=== PATIENT | female | born 1940 | race Caucasian/White ===

== ENCOUNTER 2017-07-26 08:43 | Day surgery (SDC) | payer MEDICARE, BC ==
[2017-07-26] MEDS ORDERED: fentaNYL* 50 MCG/ML 2 ML VIAL (100 MCG VIAL) ONE (09:21)
[2017-07-26] MEDS ORDERED: Midazolam* 1 MG/ML 2 ML VIAL (2 MG) ONE (09:22)
[2017-07-26] MEDS ORDERED: Buffered Lidocaine 0.9% SYRIN* 5 ML/SYR SYRINGE INTRADERM ONE (09:34)
[2017-07-26 10:22] VITALS: BP 98/55
[2017-07-26] MEDS ORDERED: Tropicamide 1% OPTH.SOL* BTL ONE (12:02)
[2017-07-26] MEDS ORDERED: Ketorolac 0.5% OPHTH (NF) 0.5 % 5 ML BTL ONE (12:02)
[2017-07-26] MEDS ORDERED: Phenylephr/Ketorolac 1%/0.3% OPH DROP BTL ONE (12:02)
[2017-07-26] MEDS ORDERED: Cyclopentolate 1% OPTH.SOL* 2 ML BTL ONE (12:02)
[2017-07-26] MEDS ORDERED: Lidocaine 1%* 5 ML VIAL ONE (12:02)
[2017-07-26] MEDS ORDERED: Phenylephrine 2.5% OPTH.SOL* 2 ML BTL ONE (12:02)
[2017-07-26] MEDS ORDERED: Neomycin/Polymy/Dex OPHTH.OIN* 3.5 GM ONE (12:02)
[2017-07-26] MEDS ORDERED: Tetracaine 0.5% OPTH.SOL 4 ML* 1 DROP BTL ONE (12:02)
--- NOTE | 2017-07-27 03:34 | OP ---
DATE OF OPERATION: 07/26/17 [facility] DATE OF : 40 SURGEON: Dr. Sawyer Sutton. APPLICATIONS PROCESSOR: None. ANESTHESIA: Topical with intravenous sedation. PRE-OP DIAGNOSIS: Cataract, left eye. POST-OP DIAGNOSIS: Cataract, left eye. OPERATIVE PROCEDURE: Phacoemulsification and cataract extraction with posterior chamber intraocular lens implant, left eye. COMPLICATIONS: None. BLOOD LOSS: None. DESCRIPTION OF PROCEDURE: The patient was brought to the operating room and received a small amount of intravenous sedation. A drop of Tetracaine was placed in her left eye. She was prepped and draped in the usual sterile fashion for ophthalmic surgery and attention was directed to the left eye where a speculum was placed. A paracentesis was created at the 5 o'clock position and 0.1 cc of 1 percent preservative-free Lidocaine was injected into the anterior chamber followed by DisCoVisc. The eye was digitally stabilized while a 2.75 mm keratome was used to create a triplanar clear corneal incision at the 3 o'clock position. A continuous curvilinear capsulorrhexis was created with a cystotome and Utrata forceps. BSS on a cannula was used to hydrodissect the lens from the capsule. Phacoemulsification was performed in a divide-and- conquer technique to create four fragments which were removed. Residual cortical material was removed with irrigation and aspiration. DisCoVisc was used to inflate the capsular bag and an AUOOTO 17.5 diopter lens was folded and inserted into the capsular bag. DisCoVisc was removed using irrigation and aspiration. BSS on a cannula was used to hydrate the corneal stroma and seal the wound. At the end of the case the pupil was round and the lens was centered. The eye was of normal pressure and the wound was water tight. The speculum was removed and topical Maxitrol ointment was placed on the surface of the eye. The eye was closed, patched and shielded and the patient was sent to the recovery room in stable condition with post operative instructions and follow-up appointment given. [id number]/[facility] #: [id number]
[2017-07-27] MEDS ORDERED: Acetaminophen TAB* 325 MG PO PRN (05:00)
== END 2017-07-26 10:29 | disposition home or self-care (01) ==
LOC: OREAST 08:43
PROVIDERS: ATTEND Ophthalmology
DX: H25.12 Age-related nuclear cataract, left eye (principal); C83.50 Lymphoblastic (diffuse) lymphoma, unspecified site; Z87.891 Personal history of nicotine dependence; J45.909 Unspecified asthma, uncomplicated
CPT/HCPCS: A9270-GY; C9447; J2250; J3010; V2632

== ENCOUNTER 2017-08-02 08:14 | Day surgery (SDC) | payer MEDICARE, BC, OTHER ==
[~2017-08-02 08:14] MED LIST: Acetaminophen TAB* 325 MG PO PRN; Buffered Lidocaine 0.9% SYRIN* 5 ML/SYR SYRINGE INTRADERM ONE
[2017-08-02] MEDS ORDERED: fentaNYL* 50 MCG/ML 2 ML VIAL (100 MCG VIAL) ONE (09:29)
[2017-08-02] MEDS ORDERED: Midazolam* 1 MG/ML 2 ML VIAL (2 MG) ONE ×2 (09:30→09:46)
[2017-08-02 10:37] VITALS: BP 102/57
[2017-08-02] MEDS ORDERED: Tetracaine 0.5% OPTH.SOL 4 ML* 1 DROP BTL ONE (11:29)
[2017-08-02] MEDS ORDERED: Tropicamide 1% OPTH.SOL* BTL ONE (11:29)
[2017-08-02] MEDS ORDERED: Phenylephrine 2.5% OPTH.SOL* 2 ML BTL ONE (11:29)
[2017-08-02] MEDS ORDERED: Phenylephr/Ketorolac 1%/0.3% OPH DROP BTL ONE (11:29)
[2017-08-02] MEDS ORDERED: Cyclopentolate 1% OPTH.SOL* 2 ML BTL ONE (11:29)
[2017-08-02] MEDS ORDERED: Lidocaine 1%* 5 ML VIAL ONE (11:29)
[2017-08-02] MEDS ORDERED: Neomycin/Polymy/Dex OPHTH.OIN* 3.5 GM ONE (11:29)
[2017-08-02] MEDS ORDERED: Ketorolac 0.5% OPHTH (NF) 0.5 % 5 ML BTL ONE (11:30)
--- NOTE | 2017-08-03 07:50 | OP ---
DATE OF OPERATION: 08/02/17 [facility] DATE OF : 40 SURGEON: Dr. Saweyr Sutton. PRELOAD SUPERVISOR: None. ANESTHESIA: Topical with intravenous sedation. PRE-OP DIAGNOSIS: Cataract, right eye. POST-OP DIAGNOSIS: Cataract, right eye. OPERATIVE PROCEDURE: Phacoemulsification and cataract extraction with posterior chamber intraocular lens implant, right eye. COMPLICATIONS: None. BLOOD LOSS: None. DESCRIPTION OF PROCEDURE: The patient was brought to the operating room and received a small amount of intravenous sedation. A drop of Tetracaine was placed in her right eye. The patient was prepped and draped in the usual sterile fashion for ophthalmic surgery and attention was directed to the right eye where a speculum was placed. A paracentesis was created at the 11 o'clock position and 0.1 cc of 1 percent preservative-free Lidocaine was injected into the anterior chamber followed by DisCoVisc. The eye was digitally stabilized while a 2.75 mm keratome was used to create a triplanar clear corneal incision at the 9 o'clock position. A continuous curvilinear capsulorrhexis was created with a cystotome and Utrata forceps. BSS on a cannula was used to hydrodissect the lens from the capsule. Phacoemulsification was performed in a divide-and- conquer technique to create four fragments which were removed. Residual cortical material was removed with irrigation and aspiration. DisCoVisc was used to inflate the capsular bag and an AUOOTO 17.5 diopter lens was folded and inserted into the capsular bag. DisCoVisc was removed using irrigation and aspiration. BSS on a cannula was used to hydrate the corneal stroma and seal the wound. At the end of the case the pupil was round and the lens was centered. The eye was of normal pressure and the wound was water tight. The speculum was removed and topical Maxitrol ointment was placed on the surface of the eye. The eye was closed, patched and shielded and the patient was sent to the recovery room in stable condition with post operative instructions and follow-up appointment given. [id number]/[facility] #: [id number] ASUNCION
== END 2017-08-02 10:35 | disposition home or self-care (01) ==
LOC: OREAST 08:14
PROVIDERS: ATTEND Ophthalmology
DX: H25.21 Age-related cataract, morgagnian type, right eye (principal); J45.909 Unspecified asthma, uncomplicated; Z85.42 Personal history of malignant neoplasm of other parts of uterus; Z85.72 Personal history of non-Hodgkin lymphomas; G62.9 Polyneuropathy, unspecified
CPT/HCPCS: A9270-GY; C9447; J2250; J3010; V2632

== ENCOUNTER 2017-09-06 11:08 | Day surgery (SDC) | payer MEDICARE, BC ==
[2017-09-06] MEDS ORDERED: Buffered Lidocaine 0.9% SYRIN* 5 ML/SYR SYRINGE INTRADERM ONE (11:47)
[2017-09-06] MEDS ORDERED: Tropicamide 1% OPTH.SOL* BTL ONE (11:55)
[2017-09-06] MEDS ORDERED: Cyclopentolate 1% OPTH.SOL* 2 ML BTL ONE (11:55)
[2017-09-06] MEDS ORDERED: Ketorolac 0.5% OPHTH (NF) 0.5 % 5 ML BTL ONE (11:55)
[2017-09-06] MEDS ORDERED: Phenylephrine 2.5% OPTH.SOL* 2 ML BTL ONE (11:55)
[2017-09-06] MEDS ORDERED: Tetracaine 0.5% OPTH.SOL 4 ML* 1 DROP BTL ONE (11:55)
[2017-09-06] MEDS ORDERED: Lidocaine 1%* 5 ML VIAL ONE (11:55)
[2017-09-06] MEDS ORDERED: Neomycin/Polymy/Dex OPHTH.OIN* 3.5 GM ONE (11:55)
[2017-09-06] MEDS ORDERED: Midazolam* 1 MG/ML 2 ML VIAL (2 MG) ONE (12:08)
[2017-09-06] MEDS ORDERED: fentaNYL* 50 MCG/ML 2 ML VIAL (100 MCG VIAL) ONE (12:09)
[2017-09-06] MEDS ORDERED: Propofol* 10 MG/ML 20 ML BTL IV PUSH ONE (12:20)
[2017-09-06 12:30] VITALS: BP 92/55
--- NOTE | 2017-09-06 13:19 | OP ---
OPERATIVE REPORT: DATE OF OPERATION: 09/06/17 DATE OF : 40 SURGEON: Sawyer Sutton MD CABLE INSTALLER REPAIRER HELPER: None. ANESTHESIA: Topical with intravenous sedation. PRE-OP DIAGNOSIS: Retained lens material, anterior chamber, right eye. POST-OP DIAGNOSIS: Retained lens material, anterior chamber, right eye. OPERATIVE PROCEDURE: Removal of foreign body (retained lens material), anterior chamber, right eye. COMPLICATIONS: None. ESTIMATED BLOOD LOSS: None. DESCRIPTION OF PROCEDURE: The patient was brought to the operating room and given intravenous sedati on. A drop of tetracaine was placed in her right eye. The patient was prepped and draped in the usu al sterile fashion for ophthalmic surgery and attention was directed to the right eye where a speculu m was placed. A paracentesis was created at the 11 o'clock position. A 0.1 cc of 1% preservative- f ree lidocaine was injected into the anterior chamber followed by DisCoVisc. The eye was digitally st abilized while the end of a lens chopper was used to bluntly dissect open the prior wound that had be en created for cataract surgery at the 9 o'clock position approximately 5 weeks ago. Irrigation and aspiration was begun into the anterior chamber and a small chip of epinucleus was removed. Gentle ph acoemulsification of this chip was performed to aid its simple removal. Further irrigation and aspir ation was performed to remove all viscoelastic from the eye. BSS on a cannula was used to hydrate the stroma and seal the wound. At the end of the case, the pupil remained small and round, the intraocu lar lens remained stable and centered, the eye pressure appeared normal, and the wound was watertight . The anterior chamber was free of foreign bodies. The speculum was removed and topical Maxitrol oi ntment was placed on the surface of the eye. A shield was placed on the eye and the patient was sent to the recovery room in stable condition with postop instructions and followup appointment given. [id number]/[facility] #: [id number]
[2017-09-07] MEDS ORDERED: Acetaminophen TAB* 325 MG PO PRN (05:00)
== END 2017-09-06 12:45 | disposition home or self-care (01) ==
LOC: OREAST 11:08
PROVIDERS: ATTEND Ophthalmology
DX: H59.021 Cataract (lens) fragments in eye following cataract surgery, right eye (principal); Z85.72 Personal history of non-Hodgkin lymphomas; Z88.0 Allergy status to penicillin; Z88.8 Allergy status to other drugs, medicaments and biological substances; J30.2 Other seasonal allergic rhinitis
CPT/HCPCS: A9270-GY; J2250; J2704; J3010

== ENCOUNTER 2020-09-06 00:39 | Inpatient (IN) ==
[2020-09-06 01:53] LABS: ABS Monocytes 0.3 10^3/ul (0-0.8); Eosinophil % 0.9 %; Hematocrit 27 % (35-47); Hemoglobin 8.5 g/dL (12.0-16.0); Lymphocyte % 6.4 %; Mean Corpuscular HGB Conc 32 g/dL (31-36); Mean Corpuscular Hemoglobin 30 pg (27-31); Mean Corpuscular Volume 95 fL (80-97); Mean Platelet Volume 7.6 fL (7.4-10.4); Platelet Count 63 10^3/uL (150-450); Red Blood Count 2.78 10^6 /uL (3.70-4.87); Red Cell Distribution Width 20 % (10-15); White Blood Count 0.6 10^3/uL (3.5-10.8)
[2020-09-06] MEDS: NS 0.9% 1000 ml BAG 1,000 ML IV ONE ×2 (01:55→09:30)
[2020-09-06 02:11] LABS: ALT 14 U/L (7-52); AST 20 U/L (13-39); Albumin 2.8 g/dL (3.2-5.2); Albumin/Globulin Ratio 1.2 (1-3); Alkaline Phosphatase 315 U/L (35-149); Anion Gap 8 mmol/L (2-11); Blood Urea Nitrogen 22 mg/dL (6-24); CO2 Carbon Dioxide 25 mmol/L (22-32); Calcium 7.6 mg/dL (8.6-10.3); Chloride 109 mmol/L (101-111); Creatine Kinase 51 U/L (10-223); EGFR African American 50.5 (>60); EGFR Non-African American 41.7 (>60); Globulin 2.3 g/dL (2-4); Glucose 116 mg/dL (70-100); Magnesium 1.5 mg/dL (1.9-2.7); Potassium 4.2 mmol/L (3.5-5.0); Sodium 142 mmol/L (135-145); Total Protein 5.1 g/dL (6.4-8.9)
[2020-09-06 02:14] LABS: Troponin I 0.04 ng/mL (<0.03)
[2020-09-06 02:15] LABS: Acetaminophen < 15 mcg/mL; Alcohol, S < 10 mg/dL (<10); Salicylate < 2.50 mg/dL (<30)
[2020-09-06 02:30] LABS: TSH Ultra Thyroid Stim Horm 1.92 mcIU/mL (0.34-5.60)
[2020-09-06 02:33] LABS: Anisocytosis 1+
[2020-09-06 02:35] LABS: RBC Morphology Normal (Normal)
[2020-09-06] MEDS ORDERED: Levofloxacin 750 MG IVPREMIX 750 MG/150 ML BAG IVPB ONE (04:30)
[2020-09-06] MEDS ORDERED: Magnesium Sulfate 2 gm BAG 2 GM/50 ML BAG IVPB ONE (04:59)
[2020-09-06] MEDS ORDERED: Magnesium Sulfate IV 1GM/100ML 1 GM/100 ML BAG IV ONE (05:14)
[2020-09-06] MEDS ORDERED: Aztreonam 1 GM in NS 0.9% 50 ML 50 ML IV SCH (05:44)
[2020-09-06] MEDS ORDERED: Vancomycin 1,000 MG in NS 0.9% 250 ml 250 ML IVPB ONE (05:44)
[2020-09-06] MEDS ORDERED: Lactated Ringers 1000 ml BAG 1,000 ML IV SCH (06:00)
[2020-09-06] MEDS ORDERED: Vancomycin per Pharmacy 1 EA NOTE FOLLOW UP SCH (06:00)
[2020-09-06] MEDS ORDERED: Cefepime 2 GM in Dextrose 2 GM/50 ML BAG IV SCH (06:00)
[2020-09-06 06:34] LABS: ABS Neutrophils 0.2 10^3/ul (1.5-7.7)
[2020-09-06] MEDS ORDERED: Heparin 5000 UNITS/ML 1 mL VIAL SUBCUT SCH (07:00)
[2020-09-06] MEDS ORDERED: Vancomycin 1,000 MG BAG/ADDV ONE (07:31)
[2020-09-06 08:49] LABS: Troponin I 0.06 ng/mL (<0.03)
[2020-09-06] MEDS: Aztreonam 2 GM in NS 0.9% 100 ML 100 ML IV SCH ×2 (11:47→18:19)
[2020-09-06 13:19] LABS: Troponin I 0.05 ng/mL (<0.03)
[2020-09-06 13:36] LABS: % Iron Saturation 12 % (15-55); Iron < 20 ug/dL (50-212); Total Iron Binding Capacity 171 mcg/dL (250-450); Transferrin 122 mg/dL (203-362); Unsaturated Iron Binding < 156 ug/dL
[2020-09-06 13:57] LABS: Ferritin 261.2 ng/mL (11-307)
[2020-09-06 14:01] LABS: Vitamin B12 1074 pg/mL (180-914)
[2020-09-06 19:39] LABS: Urine Appearance Cloudy; Urine Bilirubin Negative (Negative); Urine Blood 3+ (Negative); Urine Color Yellow; Urine Glucose Negative (Negative); Urine Ketones Negative (Negative); Urine Nitrite Negative (Negative); Urine Protein 2+(100 mg/dL) (Negative); Urine Specific Gravity 1.023 (1.002-1.030); Urine Urobilinogen Negative (Negative)
[2020-09-06 19:58] LABS: Urine Bacteria Absent (Absent); Urine Red Blood Cell Trace(0-2/hpf) (Absent); Urine White Blood Cell Absent (Absent)
[2020-09-06] MEDS: NS 0.9% 1000 ml BAG 1,000 ML IV SCH (20:25)
[2020-09-07] MEDS: Aztreonam 2 GM in NS 0.9% 100 ML 100 ML IV SCH ×3 (03:06→18:38)
[2020-09-07 06:28] LABS: Hematocrit 23 % (35-47); Hemoglobin 7.3 g/dL (12.0-16.0); Mean Corpuscular HGB Conc 32 g/dL (31-36); Mean Corpuscular Hemoglobin 31 pg (27-31); Mean Corpuscular Volume 95 fL (80-97); Mean Platelet Volume 7.6 fL (7.4-10.4); Platelet Count 50 10^3/uL (150-450); Red Blood Count 2.36 10^6 /uL (3.70-4.87); Red Cell Distribution Width 20 % (10-15); White Blood Count 0.3 10^3/uL (3.5-10.8)
[2020-09-07 06:43] LABS: Albumin 2.1 g/dL (3.2-5.2); Albumin/Globulin Ratio 1.1 (1-3); Calcium 6.6 mg/dL (8.6-10.3); EGFR African American 70.4 (>60); EGFR Non-African American 58.2 (>60); Globulin 1.9 g/dL (2-4); Magnesium 1.8 mg/dL (1.9-2.7); Potassium 3.4 mmol/L (3.5-5.0); Total Bilirubin 0.3 mg/dL (0.2-1.0)
[2020-09-07 06:55] LABS: Anisocytosis 2+
[2020-09-07 06:56] LABS: ABS Monocytes 0.3 10^3/ul (0-0.8); Eosinophil % 2.1 %; Lymphocyte % 7.5 %; Nucleated Red Blood Cells % 0.3
[2020-09-07] MEDS: Ondansetron 4 mg VIAL 2 MG/ML 2 ml VIAL IV PRN ×3 (07:42→16:44)
[2020-09-07] MEDS: Vancomycin 1,000 MG in NS 0.9% 250 ml 250 ML IVPB SCH (07:42)
[2020-09-07] MEDS: NS 0.9% 1000 ml BAG 1,000 ML IV SCH ×2 (07:43→20:04)
[2020-09-07] MEDS ORDERED: Potassium Chlor 20 meq TAB.ER PO ONE (10:47)
[2020-09-07] MEDS ORDERED: Magnesium Sulfate 2 gm BAG 2 GM/50 ML BAG IVPB ONE ×2 (10:47→15:22)
[2020-09-07] MEDS: CMC:Saliva Substitute (NF) 1 SPRAY BTL MT SCH ×2 (14:29→21:42)
[2020-09-08] MEDS: Ondansetron 4 mg VIAL 2 MG/ML 2 ml VIAL IV PRN ×2 (00:24→09:14)
[2020-09-08] MEDS: Aztreonam 2 GM in NS 0.9% 100 ML 100 ML IV SCH ×3 (02:18→18:03)
[2020-09-08] MEDS: NS 0.9% 1000 ml BAG 1,000 ML IV SCH ×2 (06:37→20:43)
[2020-09-08 06:58] LABS: Hematocrit 23 % (35-47); Hemoglobin 7.5 g/dL (12.0-16.0); Mean Corpuscular HGB Conc 33 g/dL (31-36); Mean Corpuscular Hemoglobin 32 pg (27-31); Mean Corpuscular Volume 97 fL (80-97); Mean Platelet Volume 8.4 fL (7.4-10.4); Platelet Count 55 10^3/uL (150-450); Red Blood Count 2.35 10^6 /uL (3.70-4.87); Red Cell Distribution Width 20 % (10-15); White Blood Count 0.5 10^3/uL (3.5-10.8)
[2020-09-08 07:00] LABS: Calcium 6.6 mg/dL (8.6-10.3); EGFR Non-African American 61.2 (>60); Magnesium 2.3 mg/dL (1.9-2.7); Potassium 3.5 mmol/L (3.5-5.0)
[2020-09-08 09:10] LABS: ABS Monocytes 0.4 10^3/ul (0-0.8); ABS Neutrophils 0.1 10^3/ul (1.5-7.7); Eosinophil % 0.4 %; Lymphocyte % 4.3 %
[2020-09-08] MEDS: Vancomycin 1,000 MG in NS 0.9% 250 ml 250 ML IVPB SCH (09:13)
[2020-09-08] MEDS: CMC:Saliva Substitute (NF) 1 SPRAY BTL MT SCH ×3 (09:14→20:38)
[2020-09-08 09:16] LABS: Anisocytosis 2+; Hypochromasia 1+
[2020-09-08] MEDS: Opium Tincture 6 MG/0.6 ML ORAL.LIQ SYRINGE PO SCH ×2 (12:40→18:03)
[2020-09-08] MEDS: Diphenoxylat/Atrop 2.5-0.025mg TAB PO SCH ×2 (13:33→20:36)
[2020-09-08] MEDS: Sucralfate 1 gm SUSP 1 GM/10 ML UDC PO SCH (21:14)
[2020-09-09] MEDS: Opium Tincture 6 MG/0.6 ML ORAL.LIQ SYRINGE PO SCH ×4 (00:26→17:05)
[2020-09-09] MEDS: Aztreonam 2 GM in NS 0.9% 100 ML 100 ML IV SCH ×3 (02:11→17:04)
[2020-09-09] MEDS ORDERED: Vancomycin Trough Check NOTE FOLLOW UP ONE (07:30)
[2020-09-09 08:18] LABS: Hematocrit 25 % (35-47); Hemoglobin 7.7 g/dL (12.0-16.0); Mean Corpuscular HGB Conc 31 g/dL (31-36); Mean Corpuscular Hemoglobin 31 pg (27-31); Mean Corpuscular Volume 98 fL (80-97); Mean Platelet Volume 8.1 fL (7.4-10.4); Platelet Count 66 10^3/uL (150-450); Red Blood Count 2.52 10^6 /uL (3.70-4.87); Red Cell Distribution Width 21 % (10-15); White Blood Count 1.6 10^3/uL (3.5-10.8)
[2020-09-09 08:31] LABS: Albumin 2.2 g/dL (3.2-5.2); Albumin/Globulin Ratio 1.2 (1-3); Calcium 6.8 mg/dL (8.6-10.3); EGFR African American 86.2 (>60); EGFR Non-African American 71.2 (>60); Globulin 1.8 g/dL (2-4); Magnesium 1.7 mg/dL (1.9-2.7); Potassium 3.3 mmol/L (3.5-5.0); Total Bilirubin 0.4 mg/dL (0.2-1.0)
[2020-09-09] MEDS: NS 0.9% 1000 ml BAG 1,000 ML IV SCH ×2 (08:48→23:13)
[2020-09-09] MEDS: Diphenoxylat/Atrop 2.5-0.025mg TAB PO SCH ×3 (08:48→21:39)
[2020-09-09] MEDS: Sucralfate 1 gm SUSP 1 GM/10 ML UDC PO SCH (08:49)
[2020-09-09] MEDS: CMC:Saliva Substitute (NF) 1 SPRAY BTL MT SCH ×3 (08:49→21:40)
[2020-09-09] MEDS: Vancomycin 1,000 MG in NS 0.9% 250 ml 250 ML IVPB SCH (10:39)
[2020-09-09] MEDS: Nystatin SUSPENSION 100,000 UNITS/ML UDC PO SCH ×3 (11:31→21:39)
[2020-09-09 11:41] LABS: ABS Neutrophils 0.6 10^3/ul (1.5-7.7); Anisocytosis 2+; Dohle Bodies PRESENT; Eosinophil % 0.2 %; Lymphocyte % 1.5 %; Nucleated Red Blood Cells % 0.1
[2020-09-09] MEDS: Ondansetron 4 mg VIAL 2 MG/ML 2 ml VIAL IV PRN (23:15)
[2020-09-10] MEDS: Opium Tincture 6 MG/0.6 ML ORAL.LIQ SYRINGE PO SCH ×4 (00:07→17:18)
[2020-09-10] MEDS: Aztreonam 2 GM in NS 0.9% 100 ML 100 ML IV SCH ×2 (02:28→11:48)
[2020-09-10] MEDS ORDERED: Vancomycin 1,250 MG in NS 0.9% 250 ml 250 ML IVPB SCH (08:00)
[2020-09-10] MEDS: CMC:Saliva Substitute (NF) 1 SPRAY BTL MT SCH ×3 (08:44→20:43)
[2020-09-10] MEDS: Diphenoxylat/Atrop 2.5-0.025mg TAB PO SCH ×3 (08:45→20:42)
[2020-09-10] MEDS: Nystatin SUSPENSION 100,000 UNITS/ML UDC PO SCH ×4 (08:45→20:43)
[2020-09-10 09:10] LABS: Albumin 2.5 g/dL (3.2-5.2); Albumin/Globulin Ratio 1.3 (1-3); Calcium 7.2 mg/dL (8.6-10.3); EGFR African American 93.1 (>60); EGFR Non-African American 76.9 (>60); Hematocrit 28 % (35-47); Hemoglobin 8.7 g/dL (12.0-16.0); Mean Corpuscular HGB Conc 31 g/dL (31-36); Mean Corpuscular Hemoglobin 31 pg (27-31); Mean Corpuscular Volume 101 fL (80-97); Mean Platelet Volume 8.6 fL (7.4-10.4); Platelet Count 86 10^3/uL (150-450); Potassium 3.3 mmol/L (3.5-5.0); Red Cell Distribution Width 21 % (10-15); Total Bilirubin 0.4 mg/dL (0.2-1.0); Total Protein 4.5 g/dL (6.4-8.9); White Blood Count 5.6 10^3/uL (3.5-10.8)
[2020-09-10 09:41] LABS: Anisocytosis 2+; Macrocytosis 1+; Polychromasia 1+
[2020-09-10 09:42] LABS: ABS Lymphocytes 0.1 10^3/ul (1.0-4.8); ABS Monocytes 1.3 10^3/ul (0-0.8); ABS Neutrophils 4.2 10^3/ul (1.5-7.7); Eosinophil % 0.2 %; Lymphocyte % 1.3 %
[2020-09-10 10:30] LABS: Magnesium 1.6 mg/dL (1.9-2.7)
[2020-09-10] MEDS: KCL 20 MEQ/100 ML IVPREMIX 20 MEQ/100 ML BAG IV SCH ×2 (10:32→13:15)
[2020-09-10] MEDS: Famotidine IV 10 MG/ML 2 ml VIAL (20 mg) IV SLOW PU SCH (13:14)
[2020-09-11] MEDS: Opium Tincture 6 MG/0.6 ML ORAL.LIQ SYRINGE PO SCH ×5 (00:44→23:34)
[2020-09-11] MEDS: NS 0.9% 1000 ml BAG 1,000 ML IV SCH (05:15)
[2020-09-11] MEDS: CMC:Saliva Substitute (NF) 1 SPRAY BTL MT SCH (09:11)
[2020-09-11] MEDS: Nystatin SUSPENSION 100,000 UNITS/ML UDC PO SCH ×4 (09:11→20:33)
[2020-09-11] MEDS: Diphenoxylat/Atrop 2.5-0.025mg TAB PO SCH ×3 (09:11→20:33)
[2020-09-11] MEDS: Famotidine IV 10 MG/ML 2 ml VIAL (20 mg) IV SLOW PU SCH (09:12)
[2020-09-11 09:51] LABS: Albumin 2.3 g/dL (3.2-5.2); CO2 Carbon Dioxide 18 mmol/L (22-32); Magnesium 1.6 mg/dL (1.9-2.7); Sodium 143 mmol/L (135-145)
[2020-09-11 09:57] LABS: ALT 13 U/L (7-52); Albumin/Globulin Ratio 1.2 (1-3); Alkaline Phosphatase 272 U/L (35-149); Blood Urea Nitrogen 12 mg/dL (6-24); EGFR Non-African American 83.5 (>60); Glucose 94 mg/dL (70-100); Total Protein 4.3 g/dL (6.4-8.9)
[2020-09-11 10:03] LABS: Anion Gap 7 mmol/L (2-11); Chloride 118 mmol/L (101-111)
[2020-09-11] MEDS ORDERED: Magnesium Sulfate 2 gm BAG 2 GM/50 ML BAG IVPB ONE (10:19)
[2020-09-11] MEDS: CMCS:Saliva Substitute (NF) 1 SPRAY BTL MT SCH ×2 (15:17→23:33)
[2020-09-11] MEDS: Ondansetron 4 mg VIAL 2 MG/ML 2 ml VIAL IV PRN (20:33)
[2020-09-12] MEDS: Opium Tincture 6 MG/0.6 ML ORAL.LIQ SYRINGE PO SCH ×3 (06:11→17:07)
[2020-09-12 07:01] LABS: Hematocrit 27 % (35-47); Hemoglobin 8.7 g/dL (12.0-16.0); Mean Corpuscular HGB Conc 32 g/dL (31-36); Mean Corpuscular Hemoglobin 31 pg (27-31); Mean Corpuscular Volume 98 fL (80-97); Mean Platelet Volume 8.6 fL (7.4-10.4); Platelet Count 99 10^3/uL (150-450); Red Blood Count 2.77 10^6 /uL (3.70-4.87); Red Cell Distribution Width 21 % (10-15); White Blood Count 5.8 10^3/uL (3.5-10.8)
[2020-09-12 07:11] LABS: Calcium 7.5 mg/dL (8.6-10.3); EGFR African American 91.6 (>60); EGFR Non-African American 75.7 (>60); Magnesium 1.8 mg/dL (1.9-2.7); Potassium 3.4 mmol/L (3.5-5.0)
[2020-09-12 08:11] LABS: Anisocytosis 2+; Hypochromasia 1+
[2020-09-12 08:14] LABS: ABS Lymphocytes 0.1 10^3/ul (1.0-4.8); ABS Monocytes 0.8 10^3/ul (0-0.8); ABS Neutrophils 4.9 10^3/ul (1.5-7.7); Eosinophil % 0.1 %; Lymphocyte % 1.3 %
[2020-09-12] MEDS: Nystatin SUSPENSION 100,000 UNITS/ML UDC PO SCH ×4 (09:47→20:18)
[2020-09-12] MEDS: Diphenoxylat/Atrop 2.5-0.025mg TAB PO SCH ×3 (09:47→20:17)
[2020-09-12] MEDS: Famotidine IV 10 MG/ML 2 ml VIAL (20 mg) IV SLOW PU SCH (09:48)
[2020-09-12] MEDS: CMCS:Saliva Substitute (NF) 1 SPRAY BTL MT SCH ×3 (09:51→20:18)
[2020-09-12] MEDS ORDERED: KCL 10 MEQ/50 ML IVPREMIX 10 MEQ/50 ML BAG IV ONE (10:22)
[2020-09-12] MEDS ORDERED: Magnesium Sulfate 2 gm BAG 2 GM/50 ML BAG IVPB ONE (10:24)
[2020-09-12 11:22] LABS: Hematocrit 27 % (35-47); Hemoglobin 8.5 g/dL (12.0-16.0); Mean Corpuscular HGB Conc 32 g/dL (31-36); Mean Corpuscular Hemoglobin 31 pg (27-31); Mean Corpuscular Volume 97 fL (80-97); Mean Platelet Volume 8.2 fL (7.4-10.4); Platelet Count 93 10^3/uL (150-450); Red Blood Count 2.75 10^6 /uL (3.70-4.87); Red Cell Distribution Width 20 % (10-15); White Blood Count 7.7 10^3/uL (3.5-10.8)
[2020-09-12 11:46] LABS: Magnesium 1.6 mg/dL (1.9-2.7)
[2020-09-12 12:38] LABS: ABS Lymphocytes 0.1 10^3/ul (1.0-4.8); ABS Monocytes 0.8 10^3/ul (0-0.8); ABS Neutrophils 6.8 10^3/ul (1.5-7.7); Anisocytosis 2+; Eosinophil % 0.1 %; Hypochromasia 1+; Lymphocyte % 1.2 %; Nucleated Red Blood Cells % 0.1
[2020-09-12 15:50] LABS: Calcium 7.3 mg/dL (8.6-10.3); EGFR African American 99.3 (>60); EGFR Non-African American 82.1 (>60); Potassium 3.3 mmol/L (3.5-5.0)
[2020-09-12] MEDS: Levofloxacin 500 MG IVPREMIX 500 MG/100 ML BAG IVPB SCH (17:19)
[2020-09-12 19:36] LABS: Urine Appearance Clear; Urine Bilirubin Negative (Negative); Urine Blood 1+ (Negative); Urine Color Yellow; Urine Glucose Negative (Negative); Urine Ketones Negative (Negative); Urine Nitrite Negative (Negative); Urine Protein Negative (Negative); Urine Specific Gravity 1.016 (1.002-1.030); Urine Urobilinogen Negative (Negative)
[2020-09-12 19:43] LABS: Urine Bacteria Absent (Absent); Urine Red Blood Cell Trace(0-2/hpf) (Absent); Urine White Blood Cell Absent (Absent)
[2020-09-13] MEDS: Opium Tincture 6 MG/0.6 ML ORAL.LIQ SYRINGE PO SCH ×4 (00:56→17:17)
[2020-09-13] MEDS ORDERED: Ondansetron ODT 4 mg TAB 4 MG TAB SL PRN (01:05)
[2020-09-13] MEDS ORDERED: Vancomycin Trough Check NOTE FOLLOW UP ONE (07:30)
[2020-09-13] MEDS: Diphenoxylat/Atrop 2.5-0.025mg TAB PO SCH ×3 (09:52→21:21)
[2020-09-13] MEDS: Nystatin SUSPENSION 100,000 UNITS/ML UDC PO SCH ×4 (09:53→21:21)
[2020-09-13] MEDS: CMCS:Saliva Substitute (NF) 1 SPRAY BTL MT SCH ×3 (09:55→21:22)
[2020-09-13 11:17] LABS: ABS Lymphocytes 0.1 10^3/ul (1.0-4.8); ABS Neutrophils 4.8 10^3/ul (1.5-7.7); Eosinophil % 0.1 %; Hematocrit 26 % (35-47); Hemoglobin 7.9 g/dL (12.0-16.0); Lymphocyte % 1.9 %; Mean Corpuscular HGB Conc 31 g/dL (31-36); Mean Corpuscular Hemoglobin 31 pg (27-31); Mean Corpuscular Volume 99 fL (80-97); Mean Platelet Volume 8.5 fL (7.4-10.4); Platelet Count 91 10^3/uL (150-450); Red Blood Count 2.59 10^6 /uL (3.70-4.87); Red Cell Distribution Width 21 % (10-15); White Blood Count 5.9 10^3/uL (3.5-10.8)
[2020-09-13 11:42] LABS: Acanthocytes 1+
[2020-09-13 11:43] LABS: Hypochromasia 1+
[2020-09-13] MEDS: Levofloxacin 500 MG IVPREMIX 500 MG/100 ML BAG IVPB SCH (17:24)
[2020-09-13] MEDS ORDERED: Magnesium Sulfate IV 1GM/100ML 1 GM/100 ML BAG IV ONE (17:47)
[2020-09-13 18:16] LABS: Calcium 7.1 mg/dL (8.6-10.3); Potassium 3.2 mmol/L (3.5-5.0)
[2020-09-13 18:21] LABS: EGFR African American 93.1 (>60); EGFR Non-African American 76.9 (>60)
[2020-09-13] MEDS ORDERED: Potassium Chlor 20 meq TAB.ER PO ONE (19:28)
[2020-09-13] MEDS ORDERED: Nystatin/Triamcinolone CR (NF) 1 APPLIC TUBE TOPICAL SCH (21:00)
[2020-09-13] MEDS: Triamcinolone 0.025% OINT 15 GM TUBE TOPICAL SCH (22:04)
[2020-09-13 22:09] LABS: EGFR Non-African American 84.9 (>60); Potassium 3.3 mmol/L (3.5-5.0)
[2020-09-13 22:10] LABS: Calcium 6.9 mg/dL (8.6-10.3); EGFR African American 102.7 (>60)
[2020-09-14] MEDS: Opium Tincture 6 MG/0.6 ML ORAL.LIQ SYRINGE PO SCH ×4 (00:22→16:26)
[2020-09-14 05:46] LABS: Hematocrit 22 % (35-47); Hemoglobin 7.1 g/dL (12.0-16.0); Mean Corpuscular HGB Conc 32 g/dL (31-36); Mean Corpuscular Hemoglobin 31 pg (27-31); Mean Corpuscular Volume 97 fL (80-97); Mean Platelet Volume 8.4 fL (7.4-10.4); Platelet Count 71 10^3/uL (150-450); Red Blood Count 2.28 10^6 /uL (3.70-4.87); Red Cell Distribution Width 20 % (10-15); White Blood Count 4.2 10^3/uL (3.5-10.8)
[2020-09-14 05:50] LABS: Blood Urea Nitrogen 9 mg/dL (6-24); CO2 Carbon Dioxide 26 mmol/L (22-32); Calcium 7.1 mg/dL (8.6-10.3); EGFR African American 110.3 (>60); EGFR Non-African American 91.2 (>60); Glucose 93 mg/dL (70-100); Magnesium 1.8 mg/dL (1.9-2.7); Potassium 3.6 mmol/L (3.5-5.0); Sodium 142 mmol/L (135-145)
[2020-09-14 05:58] LABS: Anion Gap 4 mmol/L (2-11); Chloride 112 mmol/L (101-111)
[2020-09-14 06:15] LABS: Anisocytosis 1+; Polychromasia 1+
[2020-09-14 06:16] LABS: ABS Lymphocytes 0.1 10^3/ul (1.0-4.8); ABS Monocytes 0.8 10^3/ul (0-0.8); ABS Neutrophils 3.2 10^3/ul (1.5-7.7); Eosinophil % 0.2 %; Lymphocyte % 2.8 %
[2020-09-14] MEDS: Famotidine IV 10 MG/ML 2 ml VIAL (20 mg) IV SLOW PU SCH (07:44)
[2020-09-14] MEDS: Diphenoxylat/Atrop 2.5-0.025mg TAB PO SCH ×3 (09:26→21:27)
[2020-09-14] MEDS: CMCS:Saliva Substitute (NF) 1 SPRAY BTL MT SCH ×3 (09:36→21:27)
[2020-09-14] MEDS: Nystatin SUSPENSION 100,000 UNITS/ML UDC PO SCH ×4 (09:37→21:25)
[2020-09-14] MEDS: Triamcinolone 0.025% OINT 15 GM TUBE TOPICAL SCH ×2 (09:38→21:28)
[2020-09-14] MEDS ORDERED: Magnesium Sulfate IV 1GM/100ML 1 GM/100 ML BAG IV ONE (12:52)
[2020-09-14 15:14] LABS: % Iron Saturation 35 % (15-55); Iron 49 ug/dL (50-212); Total Iron Binding Capacity 140 mcg/dL (250-450); Transferrin 100 mg/dL (203-362); Unsaturated Iron Binding < 125 ug/dL
[2020-09-14 15:36] LABS: Ferritin 554.1 ng/mL (11-307)
[2020-09-14 15:40] LABS: Folate 4.75 ng/mL (5.90-24.80)
[2020-09-14 15:41] LABS: Vitamin B12 724 pg/mL (180-914)
[2020-09-14] MEDS: Levofloxacin 500 MG IVPREMIX 500 MG/100 ML BAG IVPB SCH (16:26)
[2020-09-15] MEDS: Opium Tincture 6 MG/0.6 ML ORAL.LIQ SYRINGE PO SCH ×4 (00:54→17:14)
[2020-09-15 07:14] LABS: Hematocrit 27 % (35-47); Hemoglobin 9.1 g/dL (12.0-16.0); Mean Corpuscular HGB Conc 33 g/dL (31-36); Mean Corpuscular Hemoglobin 31 pg (27-31); Mean Corpuscular Volume 94 fL (80-97); Mean Platelet Volume 8.5 fL (7.4-10.4); Platelet Count 75 10^3/uL (150-450); Red Blood Count 2.92 10^6 /uL (3.70-4.87); Red Cell Distribution Width 20 % (10-15); White Blood Count 4.6 10^3/uL (3.5-10.8)
[2020-09-15 07:25] LABS: Calcium 7.1 mg/dL (8.6-10.3); EGFR African American 114.5 (>60); EGFR Non-African American 94.6 (>60); Magnesium 1.7 mg/dL (1.9-2.7); Potassium 3.5 mmol/L (3.5-5.0)
[2020-09-15 07:57] LABS: ABS Lymphocytes 0.1 10^3/ul (1.0-4.8); ABS Monocytes 0.7 10^3/ul (0-0.8); ABS Neutrophils 3.7 10^3/ul (1.5-7.7); Anisocytosis 1+; Eosinophil % 0.1 %; Lymphocyte % 2.9 %; Nucleated Red Blood Cells % 0.1
[2020-09-15] MEDS: Nystatin SUSPENSION 100,000 UNITS/ML UDC PO SCH ×4 (09:32→19:53)
[2020-09-15] MEDS: NS 0.9% 1000 ml BAG 1,000 ML IV SCH ×2 (09:32→10:33)
[2020-09-15] MEDS: Triamcinolone 0.025% OINT 15 GM TUBE TOPICAL SCH ×2 (09:34→19:53)
[2020-09-15] MEDS: Diphenoxylat/Atrop 2.5-0.025mg TAB PO SCH ×3 (09:34→19:53)
[2020-09-15] MEDS: CMCS:Saliva Substitute (NF) 1 SPRAY BTL MT SCH ×3 (09:35→19:53)
[2020-09-15] MEDS ORDERED: Magnesium Sulfate IV 1GM/100ML 1 GM/100 ML BAG IV ONE (11:11)
[2020-09-15] MEDS: Levofloxacin 500 MG IVPREMIX 500 MG/100 ML BAG IVPB SCH (17:03)
[2020-09-16] MEDS: Opium Tincture 6 MG/0.6 ML ORAL.LIQ SYRINGE PO SCH ×5 (00:18→23:37)
[2020-09-16] MEDS: NS 0.9% 1000 ml BAG 1,000 ML IV SCH ×2 (00:45→15:27)
[2020-09-16 07:16] LABS: Hematocrit 29 % (35-47); Hemoglobin 9.4 g/dL (12.0-16.0); Mean Corpuscular HGB Conc 33 g/dL (31-36); Mean Corpuscular Hemoglobin 31 pg (27-31); Mean Corpuscular Volume 95 fL (80-97); Mean Platelet Volume 8.9 fL (7.4-10.4); Platelet Count 76 10^3/uL (150-450); Red Blood Count 3.01 10^6 /uL (3.70-4.87); Red Cell Distribution Width 20 % (10-15); White Blood Count 7.5 10^3/uL (3.5-10.8)
[2020-09-16 08:15] LABS: Albumin 2.3 g/dL (3.2-5.2); Calcium 6.8 mg/dL (8.6-10.3); Magnesium 1.6 mg/dL (1.9-2.7); Potassium 3.5 mmol/L (3.5-5.0); Total Bilirubin 0.4 mg/dL (0.2-1.0)
[2020-09-16 08:21] LABS: Albumin/Globulin Ratio 1.4 (1-3); EGFR African American 123.8 (>60); EGFR Non-African American 102.3 (>60); Globulin 1.7 g/dL (2-4)
[2020-09-16] MEDS ORDERED: Magnesium Sulfate 2 gm BAG 2 GM/50 ML BAG IVPB ONE (09:13)
[2020-09-16] MEDS: Nystatin SUSPENSION 100,000 UNITS/ML UDC PO SCH (09:39)
[2020-09-16] MEDS: Triamcinolone 0.025% OINT 15 GM TUBE TOPICAL SCH ×2 (09:40→20:38)
[2020-09-16] MEDS: CMCS:Saliva Substitute (NF) 1 SPRAY BTL MT SCH ×3 (09:41→20:40)
[2020-09-16] MEDS: Diphenoxylat/Atrop 2.5-0.025mg TAB PO SCH ×3 (09:41→20:37)
[2020-09-16 12:22] LABS: Spherocytes 2+
[2020-09-16 12:25] LABS: ABS Lymphocytes 0.1 10^3/ul (1.0-4.8); ABS Monocytes 0.8 10^3/ul (0-0.8); ABS Neutrophils 6.5 10^3/ul (1.5-7.7); Eosinophil % 0.2 %; Lymphocyte % 1.9 %
[2020-09-16] MEDS: Levofloxacin 500 MG IVPREMIX 500 MG/100 ML BAG IVPB SCH (16:58)
[2020-09-17] MEDS: NS 0.9% 1000 ml BAG 1,000 ML IV SCH (05:01)
[2020-09-17] MEDS: Opium Tincture 6 MG/0.6 ML ORAL.LIQ SYRINGE PO SCH ×4 (06:37→23:35)
[2020-09-17] MEDS: Diphenoxylat/Atrop 2.5-0.025mg TAB PO SCH ×3 (09:52→21:11)
[2020-09-17] MEDS: Triamcinolone 0.025% OINT 15 GM TUBE TOPICAL SCH ×2 (09:55→21:12)
[2020-09-17] MEDS: CMCS:Saliva Substitute (NF) 1 SPRAY BTL MT SCH ×3 (09:56→21:12)
[2020-09-17] MEDS ORDERED: guaiFENesin/CODIENE 100mg/10mg 5 ML UDC PO PRN (14:29)
[2020-09-17] MEDS: Levofloxacin 500 MG IVPREMIX 500 MG/100 ML BAG IVPB SCH (18:08)
[2020-09-18 05:59] LABS: Hematocrit 28 % (35-47); Hemoglobin 9.3 g/dL (12.0-16.0); Mean Corpuscular HGB Conc 33 g/dL (31-36); Mean Corpuscular Hemoglobin 31 pg (27-31); Mean Corpuscular Volume 95 fL (80-97); Mean Platelet Volume 8.3 fL (7.4-10.4); Platelet Count 75 10^3/uL (150-450); Red Blood Count 2.99 10^6 /uL (3.70-4.87); Red Cell Distribution Width 21 % (10-15); White Blood Count 3.9 10^3/uL (3.5-10.8)
[2020-09-18 06:14] LABS: Albumin 2.4 g/dL (3.2-5.2); Albumin/Globulin Ratio 1.4 (1-3); Calcium 7.4 mg/dL (8.6-10.3); EGFR African American 110.3 (>60); EGFR Non-African American 91.2 (>60); Globulin 1.7 g/dL (2-4); Potassium 3.5 mmol/L (3.5-5.0); Total Bilirubin 0.3 mg/dL (0.2-1.0); Total Protein 4.1 g/dL (6.4-8.9)
[2020-09-18] MEDS: Opium Tincture 6 MG/0.6 ML ORAL.LIQ SYRINGE PO SCH ×3 (06:20→17:27)
[2020-09-18 08:51] LABS: Microcytosis 1+
[2020-09-18 08:53] LABS: ABS Lymphocytes 0.2 10^3/ul (1.0-4.8); ABS Monocytes 0.8 10^3/ul (0-0.8); ABS Neutrophils 2.9 10^3/ul (1.5-7.7); Eosinophil % 0.3 %; Lymphocyte % 4.1 %; Nucleated Red Blood Cells % 0.1
[2020-09-18] MEDS: CMCS:Saliva Substitute (NF) 1 SPRAY BTL MT SCH ×3 (10:29→20:07)
[2020-09-18] MEDS: Diphenoxylat/Atrop 2.5-0.025mg TAB PO SCH ×3 (10:35→20:05)
[2020-09-18] MEDS: Triamcinolone 0.025% OINT 15 GM TUBE TOPICAL SCH ×2 (10:38→20:07)
[2020-09-18] MEDS: Levofloxacin 500 MG IVPREMIX 500 MG/100 ML BAG IVPB SCH (17:18)
[2020-09-19] MEDS: Opium Tincture 6 MG/0.6 ML ORAL.LIQ SYRINGE PO SCH ×3 (00:40→11:58)
[2020-09-19] MEDS: Diphenoxylat/Atrop 2.5-0.025mg TAB PO SCH (08:42)
[2020-09-19] MEDS: Triamcinolone 0.025% OINT 15 GM TUBE TOPICAL SCH (08:51)
[2020-09-19] MEDS: CMCS:Saliva Substitute (NF) 1 SPRAY BTL MT SCH (08:51)
[2020-09-19 11:18] VITALS: BP 111/52
== END 2020-09-19 14:06 | disposition home health service (06) | DRG 808 ==
LOC: ED 00:39 → MEDTELE 11:07
PROVIDERS: ADMIT Hospitalist; ATTEND Internal Medicine Hematology & Oncology